=== PATIENT | male | born 1995 | race Caucasian/White ===

== ENCOUNTER 2019-04-06 04:00 | Emergency (ER) | payer BC ==
[~2019-04-06] VITALS: Ht 175.3 cm; Wt 68.0 kg
--- NOTE | 2019-04-06 04:16 | NUR ---
BIB SELF FROM. TO ER BED 1. AAOX4. NAD. NO SOB, BREATHING EVEN AND UNLABORED. AMBULATORY WITHOUT ASSISTANCE. C/O ABDOMINAL PAIN SINCE MIDNIGHT. PT DESCRIBE THE PAIN ACHING AND TIGHTNESS AND RATE THE PAIN 8/10. PT IS NAUSEOUS. REPORTS THAT HE MADE HIMSELF VOMIT PRIOR TO COMING TO ER WHICH PROVIDED TEMPORARY RELIEF FROM THE PAIN. PT REPORT HAVING BM TODAY AND HAVE BM REGULARLY. WAITING MD HERNANDEZ.
[2019-04-06] MEDS ORDERED: FAMOTIDINE/PF INJ 20 MG/2 ML VIAL IV ONE ×2 (04:30→04:36)
[2019-04-06] MEDS ORDERED: IV NS 0.9% 1,000 ML BAG IV ONE (04:30)
[2019-04-06] MEDS ORDERED: ONDANSETRON HCL/PF 4 MG/2 ML VIAL IVP ONE (04:30)
[2019-04-06] MEDS ORDERED: ONDANSETRON HCL/PF 4 MG/2 ML VIAL ONE (04:36)
[2019-04-06 04:46] LABS: BASOPHILS % (AUTO) 0.2 % (0.0-2.0); HEMATOCRIT 48 % (39-51); HEMOGLOBIN 16.1 g/dL (13.5-17.5); LYMPHOCYTES % (AUTO) 11.4 % (20.0-44.0); MEAN CORPUSCULAR HGB CONC 34 g/dl (31.0-36.0); MEAN CORPUSCULAR VOLUME 79 fL (80-96); MONOCYTES # (AUTO) 0.4 /CMM (0.1-1.30); NEUTROPHILS # (AUTO) 7.4 /CMM (1.8-8.9); NEUTROPHILS % (AUTO) 83.4 % (43.0-81.0); PLATELET COUNT (AUTO) 182 /CMM (150-450); RED BLOOD CELL COUNT(AUTO) 5.98 MIL/uL (4.5-6.0); WHITE BLOOD COUNT (AUTO) 8.9 K/uL (4.3-11.0)
[2019-04-06 04:46] LABS: APPEARANCE,URINE Clear (CLEAR); BILIRUBIN,URINE SMALL (NEGATIVE); BLOOD, URINE Negative Ery/uL (NEGATIVE); COLOR,URINE Yellow (YELLOW); KETONES,URINE 40 (NEGATIVE); LEUKOCYTE ESTERASE ,URINE Negative (NEGATIVE); NITRITE, URINE Negative (NEGATIVE); PH,URINE 7.5 (5.0-8.0); PROTEIN,URINE 30 mg/dl (NEGATIVE); UGLUCOSE Negative (NEGATIVE); UROBILINOGEN,URINE 0.2 EU/dL (0.2)
--- NOTE | 2019-04-06 04:48 | NUR ---
IV LINE OBTAINED ON R AC 18G. BLOOD DRAWN, LAB TACH AT BEDSIDE.
[2019-04-06 04:55] LABS: BACTERIA,URINE None seen /HPF (None Seen); RBC,URINE 0-2 /HPF (0-2); SQUAMOUS EPITHELIAL CELL,UR Few /HPF (None Seen); WBC,URINE 0-2 /HPF (0-3)
[2019-04-06 04:56] LABS: POTASSIUM 3.9 mmol/L (3.5-5.1)
[2019-04-06] MEDS ORDERED: CHLORDIAZEPOXIDE HCL 25 MG CAPSULE PO ONE (05:00)
[2019-04-06] MEDS ORDERED: MAG HYDROX/AL HYDROX/SIMETH 30 ML UDC PO ONE (05:00)
[2019-04-06 05:01] LABS: ALBUMIN 4.5 g/dL (3.4-5.0); BILIRUBIN,DIRECT 0.1 mg/dL (0.0-0.2); BILIRUBIN,TOTAL 0.3 mg/dL (0.2-1.0); TOTAL PROTEIN, SERUM 7.9 g/dL (6.4-8.2)
--- NOTE | 2019-04-06 05:10 | NUR ---
US AT BEDSIDE.
[2019-04-06] MEDS ORDERED: CHLORDIAZEPOXIDE HCL 25 MG CAPSULE ONE (05:12)
[2019-04-06] MEDS ORDERED: MAG HYDROX/AL HYDROX/SIMETH 30 ML UDC ONE (05:14)
--- NOTE | 2019-04-06 05:58 | NUR ---
Patient discharged to home in stable condition. Written and verbal after care instructions given. Patient verbalizes understanding of instruction.
[2019-04-06 05:59] VITALS: BP 132/73
== END 2019-04-06 06:00 | disposition home or self-care (01) ==
LOC: ER 04:04
DX: T51.91XA Toxic effect of unspecified alcohol, accidental (unintentional), initial encounter (principal); R10.13 Epigastric pain; Z90.89 Acquired absence of other organs; Y92.89 Other specified places as the place of occurrence of the external cause
CPT/HCPCS: 36415; 76705; 80048; 80076; 81001; 83690; 85025; 85730; 96374; 96375; 99284; J2405; J3490; J7030; 81000-TC